=== PATIENT | male | born 1980 | race Caucasian/White ===

== ENCOUNTER → 2017-10-11 | Outpatient (CLI) | payer MEDICAID | LOC: BRMIMAGING 13:34 | PROVIDERS: ATTEND Internal Medicine | DX: M13.0 Polyarthritis, unspecified (principal); M1A.00X0 Idiopathic chronic gout, unspecified site, without tophus (tophi) | CPT/HCPCS: 73130-PO ==

== ENCOUNTER → 2018-05-31 | Outpatient (CLI) | payer MEDICAID | LOC: SBRMNEURO 20:00 | PROVIDERS: ATTEND Physician Assistant Medical | DX: G47.31 Primary central sleep apnea (principal); G47.33 Obstructive sleep apnea (adult) (pediatric); I49.9 Cardiac arrhythmia, unspecified ==

== ENCOUNTER → 2018-07-15 | Outpatient (CLI) | payer MEDICAID | LOC: SBRMNEURO 20:00 | PROVIDERS: ATTEND Internal Medicine Pulmonary Disease | DX: G47.33 Obstructive sleep apnea (adult) (pediatric) (principal); G47.61 Periodic limb movement disorder ==